=== PATIENT | female | born 1950 | race Caucasian/White ===

== ENCOUNTER → 2019-04-04 | Outpatient (CLI) | payer MEDICARE ==
--- NOTE | 2019-04-05 09:49 | CRLMY ---
INDICATION: bilateral screening mammogram, asymptomatic 69 year old female been obtained using full-field digital technique. These mammographic images were interpreted with the benefit of computer-aided detection. COMPARISON FILM: 03/22/18, 02/22/17, 02/19/16, 12/03/14. FINDINGS: There are scattered fibroglandular densities. There are no masses or calcifications that are suspicious for malignancy. IMPRESSION: There is no radiographic evidence for malignancy. ASSESSMENT: BI-RADS Category 1: Negative RECOMMENDATION: Routine screening mammogram in 1 year. A lay language report of this examination will be provided to the patient. Breast Tomosynthesis was used in this interpretation. [email or web address] Dictated by: Arley Darby MD @ 04/05/2019 09:47:54 (Electronically Signed)
== END ==
LOC: JP.MAM 07:01
PROVIDERS: ATTEND Family Medicine
DX: Z12.31 Encounter for screening mammogram for malignant neoplasm of breast (principal)
CPT/HCPCS: 77063; 77067

== ENCOUNTER → 2019-04-12 | Day surgery (SDC) | payer MEDICARE ==
[~2019-04-12] MED LIST: Midazolam 1 MG/ML 2 ML SDV ONE; Propofol 200 MG/20 ML SDV ONE; Sodium Chloride 0.9% 1,000 ML IV SCH; fentaNYL 100 MCG/2 ML SDV ONE
[2019-04-12 10:35] VITALS: BP 124/69
--- NOTE | 2019-04-13 08:14 | OR ---
DATE OF PROCEDURE: 04/12/2019 SURGEON: Noel Calderon MD PROCEDURE: Colonoscopy. FINDINGS: 1. Ascending colon polyp, approximately 5 mm, completely removed using snare. 2. Sigmoid colon polyp, approximately 8 mm, completely removed using snare. COMPLICATIONS: None. BEEF TRIMMER: None. ANESTHESIA: MAC. PREOPERATIVE DIAGNOSIS: Family history of colorectal cancer. POSTOPERATIVE DIAGNOSIS: Family history of colorectal cancer. RISKS: Risks, benefits, alternatives, and limitations including, but not limited to infection, bleeding, and perforation were explained to the patient, who wished to proceed. PROCEDURE IN DETAIL: The patient was placed in left lateral decubitus position. Digital rectal exam was performed without abnormality. The scope was brought back through the ascending, transverse, and descending colon and retroflexed. The aforementioned polyps were identified and completely removed. No abnormal bleeding was noted after removal. No other abnormalities. No diverticulosis. No diverticulitis. No colitis. No abnormalities on retroflexion. The patient tolerated the procedure well. Noel Calderon MD /[id number]
== END ==
LOC: JP.SDS 07:29
PROVIDERS: ATTEND Surgery
DX: Z12.11 Encounter for screening for malignant neoplasm of colon (principal); D12.2 Benign neoplasm of ascending colon; D12.4 Benign neoplasm of descending colon; J45.909 Unspecified asthma, uncomplicated; N18.9 Chronic kidney disease, unspecified; Z80.0 Family history of malignant neoplasm of digestive organs
CPT/HCPCS: 45385; J2250; J2704; J3010; J7030

== ENCOUNTER 2024-10-04 08:40 | Day surgery (SDC) | payer MEDICARE ==
[2024-10-04] MEDS: Lactated Ringers 1,000 ML IV SCH (09:27)
[2024-10-04] MEDS ORDERED: fentaNYL 100 MCG/2 ML SDV ONE (09:30)
[2024-10-04] MEDS ORDERED: Propofol 200 MG/20 ML SDV ONE (09:30)
[2024-10-04 12:42] VITALS: BP 126/59; PULSE 51
== END 2024-10-04 12:55 | disposition home or self-care (01) ==
LOC: JP.SDS 08:40
PROVIDERS: ATTEND Surgery
DX: Z12.11 Encounter for screening for malignant neoplasm of colon (principal); K57.30 Diverticulosis of large intestine without perforation or abscess without bleeding; J45.909 Unspecified asthma, uncomplicated; N18.30 Chronic kidney disease, stage 3 unspecified; E78.5 Hyperlipidemia, unspecified; E66.9 Obesity, unspecified; Z80.0 Family history of malignant neoplasm of digestive organs
CPT/HCPCS: G0105; J2704; J3010; J7120